=== PATIENT | male | born 1985 | race American Indian/Alaskan Native ===

== ENCOUNTER 2017-12-18 06:09 | Day surgery (SDC) | payer OTHER ==
--- NOTE | 2017-12-18 07:57 | Anesthesia Day of Surgery ---
Anesthesia Day of Surgery - Day of Surgery Patient Examined: Yes Patient H&P Reviewed: Yes Patient is NPO: Yes
--- NOTE | 2017-12-18 07:57 | Anesthesia Consultation ---
Anesthesia Consult and Med Hx Date of service: 12/18/17 - Airway Anesthetic Teeth Evaluation: Good ROM Head & Neck: Adequate Mental/Hyoid Distance: Adequate Mallampati Class: Class I Intubation Access Assessment: Good - Pulmonary Exam CTA: Yes - Cardiac Exam Cardiac Exam: RRR - Pre-Operative Health Status ASA Pre-Surgery Classification: ASA2 Proposed Anesthetic Plan: MAC - Pulmonary Hx Sleep Apnea: Yes (resolved) - Cardiovascular System Hx Hypertension: Yes - Endocrine Hx Non-Insulin Dependent Diabetes: Yes (resolved)
[2017-12-18] MEDS ORDERED: NACL 0.9% 1000 ML 1,000 ML IV SCH (10:00)
[2017-12-18] MEDS ORDERED: DIPRIVAN 10 MG/ML IV ONE (10:03)
[2017-12-18] MEDS ORDERED: WATER FOR IRRIG STERILE IR ONE (10:10)
[2017-12-18 10:52] VITALS: BP 136/88
== END 2017-12-18 06:10 | disposition home or self-care (01) ==
LOC: GIO 06:09
PROVIDERS: ATTEND Specialist
DX: K91.1 Postgastric surgery syndromes (principal); K20.9 Esophagitis, unspecified; K44.9 Diaphragmatic hernia without obstruction or gangrene; I10 Essential (primary) hypertension; E11.9 Type 2 diabetes mellitus without complications; E66.01 Morbid (severe) obesity due to excess calories; G47.33 Obstructive sleep apnea (adult) (pediatric); Z98.890 Other specified postprocedural states
CPT/HCPCS: 43235; J2704

== ENCOUNTER 2018-01-10 08:50 | Outpatient (CLI) | payer OTHER ==
--- NOTE | 2018-01-10 10:28 | Fluoroscopy Report ---
Double contrast upper GI series: GERD symptoms. Double contrast examination of the esophagus demonstrates normal distention. No ulcerations or masses identified. With Valsalva maneuver there is mild distention of the esophagogastric junction but no overt evidence of or hernia. Anatomy of the stomach and duodenum are anatomically unremarkable. I see no radiographic evidence of gastric sleeve surgery as indicated by the patient. When the patient was given water in the supine position there was reflux into the midesophagus. Impression: Patulous cardioesophageal junction with reflux.
== END 2018-01-10 08:51 | disposition home or self-care (01) ==
LOC: FLUORO 08:50
PROVIDERS: ATTEND Specialist
DX: K21.9 Gastro-esophageal reflux disease without esophagitis (principal); K30 Functional dyspepsia; G47.30 Sleep apnea, unspecified; E11.9 Type 2 diabetes mellitus without complications; I10 Essential (primary) hypertension
CPT/HCPCS: 74247